=== PATIENT | male | born 1985 | race Caucasian/White ===

== ENCOUNTER 2023-06-29 20:53 | Emergency (ER) | payer SELFPAY ==
[2023-06-29 21:08] VITALS: BP 157/104; PULSE 116; RESP 18; TEMP 36.4; O2SAT 100
--- NOTE | 2023-06-30 01:32 | PC.NURSE ---
Patient was called up to triage area for room, no answer
--- NOTE | 2023-06-30 01:47 | PC.NURSE ---
Patient again called up to triage area for room back in the ED, no answer
== END 2023-06-30 02:28 | disposition left against medical advice (07) ==
LOC: ANHED 06-30 02:28
DX: R10.30 Lower abdominal pain, unspecified (principal)
CPT/HCPCS: 99199

== ENCOUNTER 2023-06-30 07:19 | Emergency (ER) | payer SELFPAY ==
[2023-06-30 07:21] VITALS: BP 173/109; PULSE 103; RESP 15; TEMP 36.4; O2SAT 100
--- NOTE | 2023-06-30 12:29 | PC.NURSE ---
pt left without notifying the charrer, unknown when pt left and was not seen departing ER
== END 2023-06-30 13:14 | disposition left against medical advice (07) ==
LOC: ANHED 12:45
DX: R10.31 Right lower quadrant pain (principal)
CPT/HCPCS: 99199

== ENCOUNTER 2023-11-25 22:11 | Emergency (ER) | payer BC, SELFPAY ==
[2023-11-25 22:13] VITALS: BP 160/94; PULSE 127; RESP 32; TEMP 36.4; O2SAT 97
[2023-11-25 22:38] LABS: Basophils Percent Auto 0.2 % (0.2-1.2); Eosinophils Absolute Auto 0.1 K/mm3 (0-0.3); Eosinophils Percent Auto 1.2 % (0-4.4); Hematocrit 45.1 % (42.0-52.0); Hemoglobin 16.4 g/dL (14.0-18.0); Immature Granulocyte Absolute 0.02 K/mm3 (0.00-0.031); Immature Granulocyte Percent A 0.2 % (0-0.5); Lymphocytes Absolute Auto 4.53 K/mm3 (0.9-3.2); Lymphocytes Percent Auto 42.8 % (18.3-44.2); Mean Corpuscular HGB Conc 36.4 g/dl (32-36); Mean Corpuscular Volume 93.6 fl (80-100); Mean Platelet Volume 9.7 fl (7.4-10.4); Monocytes Absolute Auto 1.1 K/mm3 (0.1-0.6); Neutrophils Absolute Auto 4.8 K/mm3 (1.3-6.7); Neutrophils Percent Auto 45.6 % (45.5-73.1); Platelet Count Result 176 k/mm3 (150-375); Red Blood Count 4.82 M/mm3 (4.6-6.20); Red Cell Distribution Width 12.2 % (11.5-14.5); White Blood Count 10.6 K/mm3 (4.5-10.0)
[2023-11-25 22:50] LABS: Alanine Aminotransferase 110 U/L (6-50); Albumin Level 4.6 g/dL (3.5-5.1); Alkaline Phosphatase 72 U/L (38-126); Anion Gap 12 mmol/L (4-12); Aspartate Amino Transferase 60 U/L (17-59); Bilirubin,Total 0.7 mg/dL (0.2-1.3); Blood Urea Nitrogen 8 mg/dL (9-20); Calcium 8.8 mg/dL (8.4-10.2); Carbon Dioxide 21 mmol/L (22-30); Chloride 102 mmol/L (98-107); Estimated CRCL calculation 126 ml/min; Estimated Glomerular Filt Rate > 60; Glucose 139 mg/dL (65-110); Magnesium 2.2 mg/dL (1.6-2.3); Potassium 3.7 mmol/L (3.4-5.0); Sodium 135 mmol/L (137-145)
[2023-11-25 23:58] LABS: Appearance Urine Clear (Clear); Bilirubin Urine Negative (Negative); Blood Urine Negative (Negative); Color Urine Yellow (Yellow); Glucose Urine UA Negative (Negative); Ketones Urine Negative (Negative); Leukocyte Esterase Ur Negative LEU/UL (Negative); Nitrate Urine Negative (Negative); Protein Urine Negative (Negative); Urobilinogen Urine 0.2 mg/dL (<2.0); pH Urine 5.5 (5.0-9.0)
[2023-11-25 23:59] LABS: Add Urine Microscopic? NO; Specific Grav Ur 1.003 (1.001-1.035)
[2023-11-26 00:01] VITALS: BP 146/89; PULSE 105; RESP 20; O2SAT 97
--- NOTE | 2023-11-26 00:05 | ED.GENADULT ---
HPI - General Adult General Chief complaint: Recheck/Abnormal Lab/Rx Stated complaint: high BP Time Seen by Provider: 11/25/23 23:44 History of Present Illness HPI narrative: Patient is a 38-year-old male who presents to the emergency department this evening complaining of an elevated blood pressure. Patient admits that he does have a history of high blood pressure and has been prescribed a blood pressure medication but he does not take it regularly. Patient states that he developed some mild left-sided back pain and that made him concerned that maybe this is because his blood pressure and he wanted to come and get history kidneys checked out. He is currently denying any additional symptoms including fevers or chills, any chest pain or shortness of breath, any headaches, lightheadedness, dizziness and denies any additional symptoms or concerns. Patient admits that he has been drinking today and had a few beers. Review of Systems Review of Systems: All systems are reviewed and are negative unless stated otherwise in the HPI. Exam Narrative: General: Alert, awake, afebrile, in no acute distress. HEENT: PERRL, no rhinorrhea, no post nasal drip, oropharynx clear. Cardiovascular: Regular rate and rhythm, no murmurs, rubs or gallops, no peripheral edema. Respiratory: Clear to auscultation bilaterally, no tachypnea, no wheezing, no rhonchi, no rubs, no respiratory distress. Abdomen: Soft, nontender, nondistended, no rebound, no guarding, no peritoneal signs. Musculoskeletal: No joint swelling or deformity, normal muscle tone. Skin: No rashes or petechia, no signs of infection. Neurological: Alert and oriented to person, place, and time. Follows all commands. No focal deficits, speech is clear and fluent. Course Vital Signs Vital signs: Vital Signs Temperature 97.6 F 11/25/23 22:13 Pulse Rate 127 H 11/25/23 22:13 Respiratory Rate 32 H 11/25/23 22:13 Blood Pressure 160/94 H 11/25/23 22:13 Pulse Oximetry 97 11/25/23 22:13 Oxygen Delivery Room Air 11/25/23 22:13 Temperature 97.6 F 11/25/23 22:13 Pulse Rate 98 11/26/23 00:20 Respiratory Rate 17 11/26/23 00:20 Blood Pressure 128/71 11/26/23 00:20 Pulse Oximetry 100 11/26/23 00:20 Oxygen Delivery Room Air 11/25/23 22:13 Medical Decision Making MDM Narrative Medical decision making narrative: The patient was evaluated by myself in the emergency department. History is obtained from patient who is an independent historian and physical exam was performed. External medical records were reviewed at this time. IV was established and pertinent tests were ordered. Patient's initial blood pressure was noted to be 160/94 and did improved to 146/89 while patient was in the emergency department without any medication administration. Laboratory results obtained revealing no acute process. Differential diagnosis considerations include hypertensive urgency versus emergency. Comorbidities impacting this visit include history of hypertension. I have evaluated and discussed social determinants of health with the patient that could potentially impact subsequent diagnosis and treatment plans. On repeat assessment of the patient, reevaluation revealed that the patient is doing well and is in no acute distress. Patient symptoms have improved since he arrived to our emergency department. Repeat vital signs were all reviewed and noted to be stable. Differential diagnosis and treatment plan were discussed with the patient at bedside. Patient agrees with discussion and after shared medical decision making agrees with discharge. All questions were answered to the patient's satisfaction. Patient will follow up with the PCP he was provided with in 3-5 days. Patient was provided with strict return precautions and instructed to return to the emergency department if any new or worsening symptoms develop. The patient was discharged in stable condition. Vital Si
[2023-11-26 00:20] VITALS: BP 128/71; PULSE 98; RESP 17; O2SAT 100
== END 2023-11-26 00:20 | disposition home or self-care (01) ==
PROVIDERS: Emergency Provider Emergency Medicine
DX: I10 Essential (primary) hypertension (principal); T46.5X6A Underdosing of other antihypertensive drugs, initial encounter; Z91.128 Patient's intentional underdosing of medication regimen for other reason
CPT/HCPCS: 36415; 80053; 81003; 83735; 85025; 99283